=== PATIENT | male | born 1980 | race African-American/Black ===

== ENCOUNTER 2017-09-10 10:13 | Emergency (ER) | payer OTHER ==
[~2017-09-10] VITALS: Ht 190.5 cm; Wt 75.0 kg
[2017-09-10] MEDS ORDERED: KETOROLAC 30 MG/1 ML IM ONE (11:00)
[2017-09-10] MEDS ORDERED: PLEASE ENTER ALLERGIES MC SCH (11:00)
[2017-09-10] MEDS ORDERED: KETOROLAC 30 MG/1 ML ONE (11:32)
[2017-09-10 13:55] VITALS: BP 129/90
== END 2017-09-10 13:57 | disposition home or self-care (01) ==
LOC: ED 13:40
DX: S63.655A Sprain of metacarpophalangeal joint of left ring finger, initial encounter (principal); F17.200 Nicotine dependence, unspecified, uncomplicated; X50.9XXA Other and unspecified overexertion or strenuous movements or postures, initial encounter; Y93.89 Activity, other specified; Y92.89 Other specified places as the place of occurrence of the external cause; Y99.8 Other external cause status
CPT/HCPCS: 29130; 99284

== ENCOUNTER 2018-06-23 03:59 | Emergency (ER) | payer OTHER ==
[~2018-06-23] VITALS: Ht 188 cm; Wt 79.3 kg
--- NOTE | 2018-06-23 04:23 | NUR ---
assessment made. chart up for MD to see. patient c/o not feeling well x 1 month. + dizzness and epigastric pain.
--- NOTE | 2018-06-23 04:35 | NUR ---
PA at bedside.
[2018-06-23] MEDS ORDERED: MAALOX/HYOSCYAMINE/LIDOCAINE 45 ML BTL ONE (04:43)
--- NOTE | 2018-06-23 04:59 | NUR ---
GI cocktail given. pyrotechnic mixer at bedside. urine sent to lab.
[2018-06-23] MEDS ORDERED: MAALOX/HYOSCYAMINE/LIDOCAINE 45 ML BTL PO ONE (05:00)
[2018-06-23 05:23] LABS: MICROSCOPIC AUTO
[2018-06-23 05:24] LABS: CULTURE INDICATED? NO
[2018-06-23 05:52] LABS: ALBUMIN 3.7 g/dL (3.4-5.0); ANION GAP 4 mmol/L (5-15); CHLORIDE 106 mmol/L (98-107)
[2018-06-23 05:59] LABS: ALANINE AMINOTRANSFERASE 25 U/L (12-78); ALKALINE PHOSPHATASE 68 U/L (45-117); BILIRUBIN,TOTAL 0.5 mg/dL (0.2-1.0); CREATININE 1.39 mg/dL (0.7-1.3); MEAN CORPUSCULAR HEMOGLOBIN 29.7 pg (27.5-34.5); MEAN CORPUSCULAR HGB CONC 33.4 g/dL (33.2-36.2); MEAN PLATELET VOLUME 8.4 fL (7.4-10.4); PLATELET COUNT 223 x10^3/uL (130-400); RED BLOOD COUNT 5.32 x10^6/uL (4.38-5.82); RED CELL DISTRIBUTION WIDTH 15.5 % (9.4-14.8); TOTAL PROTEIN 7.7 g/dL (6.4-8.2); TROPONIN I < 0.015 ng/mL (0.000-0.045)
[2018-06-23 06:18] LABS: MD YES
[2018-06-23 06:24] LABS: <PLATELET ESTIMATE> ADEQUATE; BAND#(MANUAL) 0.09 x10^3/uL; BANDS%(MANUAL) 1 % (0-7); LYMPH#(MANUAL) 2.09 x10^3/uL (1-3.4); LYMPHS% (MANUAL) 23 % (22-44); MONOS#(MANUAL) 0.73 x10^3/uL (0.3-2.7); MONOS% (MANUAL) 8 % (2-9); SEG#(MANUAL) 6.19 x10^3/uL (1.8-6.8); SEGS% (MANUAL) 68 % (42-75)
[2018-06-23 06:29] LABS: LARGE PLATELETS 1+
--- NOTE | 2018-06-23 06:37 | NUR ---
PA at bedside for re-eval.
[2018-06-23 06:48] VITALS: BP 116/68
--- NOTE | 2018-06-23 06:48 | NUR ---
patient discharged with prescriptions and instruction. verbalized understanding.
== END 2018-06-23 06:50 | disposition home or self-care (01) ==
LOC: ED 06:40
DX: K29.00 Acute gastritis without bleeding (principal); R07.89 Other chest pain
CPT/HCPCS: 36415; 71046; 80053; 81001; 83690; 84484; 85025; 93005; 99284